=== PATIENT | female | born 1980 | race Caucasian/White ===

== ENCOUNTER → 2019-01-20 | Outpatient (CLI) | payer OTHER ==
[~2019-01-20] MED LIST: APAP500 PO; ASPIRIN325 PO; AZITHROMYCIN 2250 MG PO; CLEOCIN HCL300 MG PO; FEMCON FE TABL1 EACH PO; FISH OIL 1,001000 M2 PO; FLONASE 0.05%50 MCG NASAL; IBUPROFEN 200200 M1 PO; MECLIZINE 25 MG25 M1 PO; MUCINEX DM TABL1 TA1 PO; MULTI-VITAMIN1 EAC1 PO; MULTIPLE VITAM1 EAC2 PO; NORCO 5-325 TA1 EACH PO; SORINE 80 MG TA80 M1 PO; VALIUM5 MG PO; ZOFRAN 4 MG ORAL4 M1 DIS; ZYRTEC10 M2
== END ==
LOC: BC 09:29
DX: Z12.31 Encounter for screening mammogram for malignant neoplasm of breast (principal)